=== PATIENT | female | born 1970 | race Caucasian/White ===

== ENCOUNTER 2020-10-27 06:51 | Emergency (ER) | payer OTHER ==
[~2020-10-27] VITALS: Ht 162.6 cm; Wt 111.1 kg
[2020-10-27 08:56] VITALS: BP 184/72
== END 2020-10-27 08:56 | disposition home or self-care (01) ==
LOC: M.ERS 06:51
DX: F32.9 Major depressive disorder, single episode, unspecified (principal); Z59.0 Homelessness; I10 Essential (primary) hypertension; J45.909 Unspecified asthma, uncomplicated; Z88.8 Allergy status to other drugs, medicaments and biological substances

== ENCOUNTER 2020-11-12 14:53 | Emergency (ER) | payer OTHER ==
[~2020-11-12] VITALS: Ht 162.6 cm; Wt 108.9 kg
[2020-11-12 15:40] VITALS: BP 108/58
== END 2020-11-12 15:41 | disposition home or self-care (01) ==
LOC: M.ERS 14:53
DX: E86.0 Dehydration (principal); R42 Dizziness and giddiness; I10 Essential (primary) hypertension; E03.9 Hypothyroidism, unspecified; J45.909 Unspecified asthma, uncomplicated; M79.7 Fibromyalgia; Z88.8 Allergy status to other drugs, medicaments and biological substances

== ENCOUNTER 2020-11-14 14:07 | Inpatient (IN) | payer OTHER ==
[~2020-11-14] VITALS: Ht 152.4 cm; Wt 118.4 kg
[2020-11-14 14:20] VITALS: BP 82/62
[2020-11-14] MEDS ORDERED: ZESTRIL40 MG PO (14:26)
[2020-11-14] MEDS ORDERED: SERTRALINE HCL100 MG PO (14:26)
[2020-11-14] MEDS ORDERED: LYRICA25 MG PO (14:26)
[2020-11-14] MEDS ORDERED: LEVO-T25 MCG PO (14:27)
[2020-11-14 15:04] LABS: ABSOLUTE BASOPHILS 0.1 thou/uL (0.0-0.2); ABSOLUTE EOSINOPHILS 0.1 thou/uL (0.0-0.7); ABSOLUTE LYMPHOCYTES 1.5 thou/uL (0.8-5.3); ABSOLUTE MONOCYTES 0.4 thou/uL (0.0-1.2); ABSOLUTE NEUTROPHILS 5.5 thou/uL (1.6-8.1); BASOPHILS 0.9 %; EOSINOPHILS 1.5 %; HEMATOCRIT 33.8 % (37.0-47.0); HEMOGLOBIN 10.9 gm/dL (12.0-15.0); LYMPHOCYTES 19.8 %; MCH 26.9 pg (26.0-34.0); MCHC 32.1 g/dL (28.0-37.0); MCV 83.7 fL (80.0-100.0); MONOCYTES 5.5 %; MPV 8.3 fl. (7.2-11.1); NUCLEATED RBCS 0 /100WBC; PLATELET COUNT* 218 thou/uL (150-400); POLYS 72.3 %; RBC 4.03 mil/uL (4.20-5.00); WBC 7.6 thou/uL (4.0-11.0)
[2020-11-14 15:12] LABS: CALCIUM 7.9 mg/dL (8.5-10.1); POTASSIUM 3.4 mmol/L (3.5-5.1)
[2020-11-14 15:25] LABS: ALBUMIN 3.3 g/dL (3.4-5.0); TOTAL BILIRUBIN 0.2 mg/dL (<0.1-1.0); TOTAL PROTEIN 6.4 g/dL (6.4-8.2)
--- NOTE | 2020-11-14 15:32 | EKG ---
[place] [address] ELECTROCARDIOGRAM REPORT Name: CHINO CONNER Room: [facility]#: [id number] Admission: 11/14/20 Attend Phys: Discharge: Date of : 68 Date of Service: 11/14/20 1445 Report #: [id number] THIS REPORT FOR: //name// [facility] ED Test Date: 2020-11-14 Test Time: 14:45:52 Pat Name: CHINO CONNER Department: Room: Gender: Genetic Supervisor: : 1970 Requested By: Sohail Wang Order Number: [id number] MD: Kar Martínez Measurements Intervals [place] Rate: 77 P: 39 [place]: 164 QRS: -36 QRSD: 111 T: 33 QT: 392 QTc: 444 Interpretive Statements Sinus rhythm Left ventricular hypertrophy Anterior Q waves, possibly due to LVH No previous ECG available for comparison Electronically Signed On 11-14-2020 15:31:59 CDT by Kar Martínez [email or web address] <ELECTRONICALLY SIGNED> By: Kar Martínez MD, [facility] 11/14/20 1531 1445 1445 Kar Martínez MD, [facility] /EPI
[2020-11-14 16:06] LABS: APTT 25.9 Seconds (25.0-31.3); PROTIME 10.9 Seconds (9.20-11.50)
[2020-11-14 20:30] VITALS: BP 115/61
[2020-11-14 21:35] VITALS: BP 115/61
[2020-11-14 21:55] LABS: URINE BILIRUBIN NEGATIVE (Negative); URINE BLOOD NEGATIVE (Negative); URINE CLARITY CLEAR; URINE COLOR YELLOW; URINE GLUCOSE-RANDOM NEGATIVE (Negative); URINE KETONES NEGATIVE (Negative); URINE LEUKOCYTES-REFLEX NEGATIVE (Negative); URINE NITRITE-REFLEX NEGATIVE (Negative); URINE PROTEIN 1+ (Negative); URINE SPECIFIC GRAVITY >= 1.030 (1.005-1.030); URINE UROBILINOGEN 0.2 E.U./dl (0.2-1.0)
[2020-11-15 00:30] VITALS: BP 107/60
[2020-11-15 03:28] LABS: HEMATOCRIT 35.9 % (37.0-47.0); HEMOGLOBIN 11.3 gm/dL (12.0-15.0); MCH 26.6 pg (26.0-34.0); MCHC 31.5 g/dL (28.0-37.0); MCV 84.5 fL (80.0-100.0); MPV 8.2 fl. (7.2-11.1); RBC 4.25 mil/uL (4.20-5.00); RDW-CV 16.9 % (10.5-14.5); WBC 7.8 thou/uL (4.0-11.0)
[2020-11-15 03:44] LABS: CALCIUM 7.6 mg/dL (8.5-10.1); POTASSIUM 3.7 mmol/L (3.5-5.1)
[2020-11-15 03:45] LABS: CREATININE 3.3 mg/dL (0.6-1.3)
[2020-11-15 04:35] VITALS: BP 98/51
[2020-11-15 08:30] VITALS: BP 109/61
[2020-11-15 12:54] VITALS: BP 113/58
[2020-11-15 16:00] VITALS: BP 136/73
[2020-11-15 21:45] VITALS: BP 99/49
[2020-11-16 01:04] VITALS: BP 119/67
[2020-11-16 05:09] VITALS: BP 139/66
[2020-11-16 05:59] LABS: HEMATOCRIT 28.5 % (37.0-47.0); HEMOGLOBIN 9.4 gm/dL (12.0-15.0); MCH 27.2 pg (26.0-34.0); MCV 82.4 fL (80.0-100.0); MPV 8.3 fl. (7.2-11.1); RBC 3.46 mil/uL (4.20-5.00); RDW-CV 16.5 % (10.5-14.5); WBC 4.2 thou/uL (4.0-11.0)
[2020-11-16 06:15] LABS: CALCIUM 7.8 mg/dL (8.5-10.1); POTASSIUM 3.9 mmol/L (3.5-5.1)
[2020-11-16 06:16] LABS: CREATININE 1.4 mg/dL (0.6-1.3)
[2020-11-16 08:00] VITALS: BP 145/69
[2020-11-16 16:00] VITALS: BP 171/81
[2020-11-16 20:00] VITALS: BP 134/56
[2020-11-17 01:25] VITALS: BP 166/84
[2020-11-17 08:00] VITALS: BP 167/92
[2020-11-17 16:00] VITALS: BP 162/85
[2020-11-17 19:58] VITALS: BP 147/71
[2020-11-18] VITALS: BP 154/73
[2020-11-18 04:51] LABS: HEMATOCRIT 30.2 % (37.0-47.0); MCH 27.3 pg (26.0-34.0); MCV 82.7 fL (80.0-100.0); MPV 8.4 fl. (7.2-11.1); RBC 3.66 mil/uL (4.20-5.00); RDW-CV 16.3 % (10.5-14.5); WBC 4.6 thou/uL (4.0-11.0)
[2020-11-18 05:10] LABS: CREATININE 1.1 mg/dL (0.6-1.3); MAGNESIUM 1.3 mg/dL (1.8-2.4); POTASSIUM 3.7 mmol/L (3.5-5.1); TOTAL BILIRUBIN 0.3 mg/dL (<0.1-1.0); TOTAL PROTEIN 6.1 g/dL (6.4-8.2)
[2020-11-18 08:00] VITALS: BP 182/102
[2020-11-18 12:00] VITALS: BP 127/89
[2020-11-18] MEDS ORDERED: ZOFRAN ODT4 MG DISSOLVE (12:20)
[2020-11-18] MEDS ORDERED: HYDROCODON-ACE1 EAC7 PO (12:20)
[2020-11-18] MEDS ORDERED: PHENERGAN 25 MG25 M1 PO (12:20)
[2020-11-18 13:12] VITALS: BP 182/102
== END 2020-11-18 18:45 | disposition home or self-care (01) | DRG 683 ==
LOC: M.ERS 14:07 → M.TBA-ER 16:27 → M.2W 11-15 13:05
PROVIDERS: Emergency Medicine; Family Medicine; Internal Medicine; ADMIT Internal Medicine; ATTEND Internal Medicine
DX: N17.9 Acute kidney failure, unspecified (principal); Z68.43 Body mass index [BMI] 50.0-59.9, adult; J45.909 Unspecified asthma, uncomplicated; E86.0 Dehydration; Z88.8 Allergy status to other drugs, medicaments and biological substances; I10 Essential (primary) hypertension; E87.6 Hypokalemia; M79.7 Fibromyalgia; E66.9 Obesity, unspecified; E03.9 Hypothyroidism, unspecified; G89.29 Other chronic pain; Z59.0 Homelessness; K59.00 Constipation, unspecified; Z20.822 Contact with and (suspected) exposure to COVID-19

== ENCOUNTER 2021-01-04 09:30 | Emergency (ER) | payer OTHER ==
[~2021-01-04] VITALS: Ht 162.6 cm; Wt 113.4 kg
[~2021-01-04 09:30] MED LIST: HYDROCODON-ACE1 EAC7 PO; LEVO-T25 MCG PO; LYRICA25 MG PO; PHENERGAN 25 MG25 M1 PO; SERTRALINE HCL100 MG PO; ZESTRIL40 MG PO; ZOFRAN ODT4 MG DISSOLVE
[2021-01-04 11:53] LABS: ABSOLUTE EOSINOPHILS 0.1 thou/uL (0.0-0.7); ABSOLUTE LYMPHOCYTES 0.8 thou/uL (0.8-5.3); ABSOLUTE MONOCYTES 0.2 thou/uL (0.0-1.2); ABSOLUTE NEUTROPHILS 3.5 thou/uL (1.6-8.1); BASOPHILS 0.8 %; EOSINOPHILS 1.1 %; HEMOGLOBIN 11.3 gm/dL (12.0-15.0); LYMPHOCYTES 17.3 %; MCH 27.1 pg (26.0-34.0); MCHC 32.3 g/dL (28.0-37.0); MCV 83.9 fL (80.0-100.0); MONOCYTES 4.2 %; MPV 7.5 fl. (7.2-11.1); NUCLEATED RBCS 0 /100WBC; PLATELET COUNT* 215 thou/uL (150-400); POLYS 76.6 %; RBC 4.18 mil/uL (4.20-5.00); RDW-CV 16.6 % (10.5-14.5); WBC 4.6 thou/uL (4.0-11.0)
[2021-01-04 12:01] LABS: CALCIUM 8.8 mg/dL (8.5-10.1); CREATININE 1.4 mg/dL (0.6-1.3); POTASSIUM 4.2 mmol/L (3.5-5.1)
[2021-01-04 12:06] LABS: ALBUMIN 3.7 g/dL (3.4-5.0); TOTAL BILIRUBIN 0.4 mg/dL (<0.1-1.0); TOTAL PROTEIN 7.3 g/dL (6.4-8.2)
[2021-01-04] MEDS ORDERED: HYDROCODON-ACE1 EAC7 PO ×2 (14:18)
[2021-01-04] MEDS ORDERED: ZOFRAN ODT4 MG DISSOLVE ×2 (14:18)
[2021-01-04 14:32] VITALS: BP 122/70
--- NOTE | 2021-01-04 17:05 | EKG ---
[place] [address] ELECTROCARDIOGRAM REPORT Name: CHINO CONNER Room: [facility]#: [id number] Admission: 01/04/21 Attend Phys: Discharge: 01/04/21 Date of : 68 Date of Service: 01/04/21 1123 Report #: [id number] THIS REPORT FOR: //name// [facility] ED Test Date: 2021-01-04 Test Time: 11:23:11 Pat Name: CHION CONNER Department: Room: Gender: F Printed Circuit Board Preassembler: CLARA : 1970 Requested By: Stevan Dyson Order Number: [id number] MD: Abner Glaser Measurements Intervals [place] Rate: 70 P: 47 ID: 180 QRS: -35 QRSD: 106 T: 10 QT: 379 QTc: 409 Interpretive Statements Sinus rhythm Left ventricular hypertrophy late transition Compared to ECG 11/14/2020 14:45:52 No significant changes Electronically Signed On 01-04-2021 17:04:57 CDT by Abner Glaser [email or web address] <ELECTRONICALLY SIGNED> By: Abner Glaser MD, FACC 01/04/21 1704 1123 1123 Abner Glaser MD, FAC /EPI
[2021-01-05] MEDS ORDERED: ARMOUR THYROID15 M1 PO ×2 (08:51)
== END 2021-01-04 14:34 | disposition home or self-care (01) ==
LOC: M.ERS 09:30
PROVIDERS: Emergency Medicine Emergency Medical Services
DX: R10.13 Epigastric pain (principal); J45.909 Unspecified asthma, uncomplicated; I10 Essential (primary) hypertension; E03.9 Hypothyroidism, unspecified; Z79.899 Other long term (current) drug therapy; Z88.8 Allergy status to other drugs, medicaments and biological substances

== ENCOUNTER 2021-01-05 08:38 | Inpatient (IN) | payer OTHER ==
[~2021-01-05] VITALS: Ht 162.6 cm; Wt 108.9 kg
--- NOTE | ~2021-01-05 | PROC ---
[address] [address] PROCEDURE REPORT Name: CHINO CONNER Room: [address] IN M.R.#: [id number] Admission: 01/05/21 Attend Phys: Sayda Bond Discharge: 01/08/21 Date of : 68 Report #: [id number] THIS REPORT FOR: cc: Lisa Martinez Sarah Anne FNP [facility],Medical Records Staff ~ For GI report, please see the Provation report in Perceptive 7 content. By: 0645Medical Records Staff [facility] /JUSTIN
--- NOTE | ~2021-01-05 | CON ---
[address] [address] CONSULTATION Name: CHINO CONNER Room: [address] Rodrick Martinez#: [id number] Admission: 01/05/21 Attend Phys: Sayda Bond Discharge: Date of : 68 Report #: [id number] THIS REPORT FOR: cc: Lisa Martinez Sarah Anne FNP Namin, Farid M. MD ~ cc: LISA MARTINEZ NP DATE OF CONSULTATION: 01/07/2021 Please note at the time of this dictation, the patient was seen and physically examined by myself. REASON FOR CONSULTATION: Abdominal pain, nausea, vomiting and diarrhea. HISTORY OF PRESENT ILLNESS: This is a 50-year-old female presenting to the Emergency Room with abdominal pain, nausea, vomiting and diarrhea that started on Thursday, progressively got worse on Thursday, prompting her to come in. She was seen earlier in the Emergency Room and sent home, but her symptoms continued to get worse, prompting her to come back since she was unable to keep anything down and she became very dehydrated. The patient reports that she was having epigastric pain that radiated into her back. She states she had significant nausea and vomiting with no bright red blood or coffee-ground emesis. She states her diarrhea was about 3-4 times a day and she denied any bright red blood or melanotic stool. She states her normal bowel habits is a soft formed stool on a daily basis. The patient states since she has been here, her nausea and vomiting have improved. Her last diarrhea stool was yesterday. The only thing that has not improved is her abdominal pain, which persists in the epigastric to right upper quadrant area. The patient does take naproxen regularly for her fibromyalgia and has for some time. The patient states she did have a colonoscopy several years ago as a preventative measure back in [place], [place] with Dr. Vanessa Davies. We will try to attempt to get those records. She states that they did biopsies and everything came back okay. Unclear if it was polyps or anything else. ALLERGIES: AMBIEN. MEDICATIONS FROM HOME: Include lisinopril, Lyrica, sertraline and [place] Thyroid. PAST MEDICAL HISTORY: Hypothyroidism, hypertension, some depression, fibromyalgia. She has asthma. She has 3 herniated disks. PAST SURGICAL HISTORY: [place] [address] CONSULTATION Name: CHINO CONNER [address] [id number] Admission: 01/05/21 Attend Phys: Sayda Bond Discharge: Date of : 68 Report #: [id number] FAMILY HISTORY: Father with colon polyps and mother with breast cancer. SOCIAL HISTORY: Apparently homeless. Denies any alcohol use, but has smoked cigarettes for a long time for almost 30 years, but none currently. REVIEW OF SYSTEMS: Twelve-point review of systems is essentially negative except what is mentioned in the HPI. PHYSICAL EXAMINATION: VITAL SIGNS: Temperature 36.6, pulse 63, respirations 20, blood pressure 128/70. HEART: Regular rate and rhythm. LUNGS: Clear. ABDOMEN: Soft, positive bowel sounds in all 4 quadrants with tenderness noted in epigastric and right upper quadrant area. LABORATORY DATA: Hemoglobin is 12.1, white count is 6.1, platelets 295. ESR is 13. Iron is 45, TIBC is 296. Vitamin B12 is 435. CRP is 2.8. Percentage sat iron is 15. GFR is 32 and her LFTs are completely normal. She had a CT scan of the abdomen and pelvis which was completely negative GI. IMPRESSION: 1. Abdominal pain, epigastric to right upper quadrant, pain radiating into her back. 2. Nausea and vomiting has improved. 3. Diarrhea, improved. 4. Anemia, mild. 5. Chronic nonsteroidal antiinflammatory drug use, naproxen. 6. Family history, mother with breast cancer and father with colon polyps. PLAN: 1. EGD today with Dr. Yu. 2. Obtain records from [place], [place] from Dr. Vanessa Davies on her colonoscopy. 3. Further recommendations to be made after the procedure has been performed. Thank you for allowing us to participate in this patient's care. Please do not hesitate to call with any questions regarding this consult. By: [id number] Yu MD /carrie
[2021-01-05 08:48] VITALS: BP 164/89
[2021-01-05] MEDS ORDERED: ARMOUR THYROID15 M1 PO ×2 (08:51)
[2021-01-05 09:07] LABS: ABSOLUTE BASOPHILS 0.1 thou/uL (0.0-0.2); ABSOLUTE EOSINOPHILS 0.1 thou/uL (0.0-0.7); ABSOLUTE LYMPHOCYTES 0.7 thou/uL (0.8-5.3); ABSOLUTE MONOCYTES 0.3 thou/uL (0.0-1.2); ABSOLUTE NEUTROPHILS 4.9 thou/uL (1.6-8.1); BASOPHILS 1.7 %; EOSINOPHILS 1.6 %; HEMATOCRIT 36.6 % (37.0-47.0); HEMOGLOBIN 12.1 gm/dL (12.0-15.0); LYMPHOCYTES 10.8 %; MCH 27.2 pg (26.0-34.0); MCHC 32.9 g/dL (28.0-37.0); MCV 82.7 fL (80.0-100.0); MONOCYTES 4.8 %; MPV 7.5 fl. (7.2-11.1); NUCLEATED RBCS 0 /100WBC; POLYS 81.1 %; RBC 4.43 mil/uL (4.20-5.00); RDW-CV 16.8 % (10.5-14.5); WBC 6.1 thou/uL (4.0-11.0)
[2021-01-05 09:19] LABS: CALCIUM 9.1 mg/dL (8.5-10.1); CREATININE 1.7 mg/dL (0.6-1.3); POTASSIUM 4.3 mmol/L (3.5-5.1)
[2021-01-05 09:23] LABS: TOTAL BILIRUBIN 0.4 mg/dL (<0.1-1.0); TOTAL PROTEIN 7.9 g/dL (6.4-8.2)
[2021-01-05 09:32] LABS: PLATELET COUNT* 295 thou/uL (150-400)
--- NOTE | 2021-01-05 10:24 | EKG ---
[place] [address] ELECTROCARDIOGRAM REPORT Name: CHINO CONNER Room: [facility] M.R.#: [id number] Admission: 01/05/21 Attend Phys: Luis Nieto Discharge: Date of : 68 Date of Service: 01/05/21 0913 Report #: [id number] THIS REPORT FOR: //name// [facility] ED Test Date: 2021-01-05 Test Time: 09:13:30 Pat Name: CHINO CONNER Department: Room: [facility] Gender: F Utilization Review Rn: DEON : 1970 Requested By: Stevan Dyson Order Number: [id number] MD: Abner Glaser Measurements Intervals [place] Rate: 69 P: 25 [place]: 180 QRS: -32 QRSD: 106 T: 21 QT: 388 QTc: 416 Interpretive Statements Sinus rhythm Abnormal R-wave progression, late transition Left ventricular hypertrophy Compared to ECG 01/04/2021 11:23:11 No significant changes Electronically Signed On 01-05-2021 10:24:12 CDT by Abner Glaser [email or web address] <ELECTRONICALLY SIGNED> By: Abner Glaser MD, FAC 01/05/21 1024 2 2 Abner Glaser MD, [facility] /EPI
[2021-01-05 11:35] VITALS: BP 151/88
[2021-01-05 14:09] VITALS: BP 119/69
[2021-01-05 16:21] VITALS: BP 132/69
[2021-01-05 20:00] VITALS: BP 133/70
[2021-01-06 04:40] LABS: HEMATOCRIT 31.9 % (37.0-47.0); HEMOGLOBIN 10.4 gm/dL (12.0-15.0); MCH 27.4 pg (26.0-34.0); MCHC 32.7 g/dL (28.0-37.0); MCV 83.9 fL (80.0-100.0); MPV 7.6 fl. (7.2-11.1); RBC 3.81 mil/uL (4.20-5.00); RDW-CV 16.8 % (10.5-14.5); WBC 3.9 thou/uL (4.0-11.0)
[2021-01-06 05:12] LABS: CALCIUM 8.5 mg/dL (8.5-10.1); CREATININE 1.4 mg/dL (0.6-1.3); POTASSIUM 4.1 mmol/L (3.5-5.1)
--- NOTE | 2021-01-06 07:20 | NUR ---
Alert and oriented x 4. She did have some nausea, med given x 1. She is up independetly to the bathroom. pain meds x 2 for abdominal pain. Shehas slept well.
[2021-01-06 07:50] VITALS: BP 127/61
[2021-01-06 15:50] VITALS: BP 140/71
--- NOTE | 2021-01-06 16:12 | NUR ---
NO COMPLAINTS OF NAUSEA OR DIARRHEA THIS SHIFT, PRN VICODIN GIVEN X 1 FOR ABD PAIN. PATIENT UP AMBULATING WITHOUT DIFFICULTY, TOOK SHOWER. IVF INFUSING ORDERED. SPOKE WITH DR. NG THIS AM, NPO AFTER MIDINGHT FOR EGD. PATIENT UPDATED ON PLAN OF CARE. REMAINS ON CLEAR LIQUIDS.
[2021-01-06 18:21] LABS: % SATURATION 15 % (20-39); IRON 45 ug/dL (50-175)
[2021-01-06 20:00] VITALS: BP 138/70
--- NOTE | 2021-01-07 08:00 | NUR ---
Alert and oriented x 4. She is up independently in the room. She had painmed x 1 at bedtime. This am her IV stopped working. We were unable to start a new one. Work Order Sorting Clerk was notified and he will come try. She has been NPO since midnight for an EGD with Dr Yu at 1pm. Onofres slept well.
[2021-01-07 08:08] VITALS: BP 144/77
--- NOTE | 2021-01-07 12:06 | NUR ---
AM ASSESSMENT AND VITAL SIGNS COMPLETED DOCUMENTED. PT CONTINUED TO HAVE NAUSEA AND VOMITING HOWEVER GI WANTS HER TO FOLLOW UP OUT PATIENT SHE HAS A LONGSTANDING HX WITH THEM. PT HAS BEEN REHYDRATED WITH IVF AND IS TOLERATING ICE CHIPS. PT PROVIDED WITH DISCHARGE INSTRUCTIONS, TRANSPORTED TO EXIT AND DISCHARGED HOME IN STABLE CONDITION.
--- NOTE | 2021-01-07 15:26 | NUR ---
cm completed an assessement with patient who indicated she lives home alone. pt has house. pt has no stairs to navigate. pt no longer using cane at this time. pt drives a vehicle. pt denies hx with hh or snf. there are no anticipated dc needs at this time.
[2021-01-07 16:00] VITALS: BP 142/73
--- NOTE | 2021-01-07 16:57 | 2DMMODE ---
[place] [address] 2 D/M-MODE ECHOCARDIOGRAM Name: CHINO CONNER Room: [address] ADM IN .R.#: [id number] Admission: 01/05/21 Attend Phys: Luis Nieto Discharge: Date of : 68 Date of Service: 01/07/21 1657 Report #: [id number] THIS REPORT FOR: cc: Lisa Martinez Sarah Anne FNP Liston, Michael J. MD [facility] ~ APPROVED REPORT Study performed: 01/07/2021 11:14:32 EXAM: Comprehensive 2D, Doppler, and color-flow Echocardiogram Patient Location: In-Patient Room #: 311 Status: routine BSA: 2.11 HR: 67 bpm BP: 144/77 mmHg Rhythm: NSR Other Information Study Quality: Good Indications Dyspnea 2D Dimensions IVSd: 10.54 (7-11mm) LVOT Diam: 19.89 (18-24mm) LVDd: 51.56 mm PWd: 11.63 (7-11mm) Ascending Ao: 32.11 (22-36mm) LVDs: 29.11 (25-40mm) Aortic Root: 28.65 mm Volumes Left Atrial Volume (Systole) LA ESV Index: 23.90 mL/m2 Aortic Valve AoV Peak Jose Alfredo.: 1.72 m/s AO Peak Gr.: 11.80 mmHg LVOT Max P.49 mmHg AO Mean Gr.: 6.80 mmHg LVOT Mean P.59 mmHg LVOT Max V: 1.62 m/s AO V2 VTI: 37.36 cm LVOT Mean V: 0.96 m/s MARYANNE (VTI): 3.39 cm2 LVOT V1 VTI: 40.71 cm AI [place]: 1.05 m/s2 [place] [address] 2 D/M-MODE ECHOCARDIOGRAM Name: UBALDOCHINO Room: [address] IN .R.#: [id number] Admission: 01/05/21 Attend Phys: Luis Nieto Discharge: Date of : 68 Date of Service: 01/07/21 1657 Report #: [id number] AI PHT: 836.62 ms Mitral Valve E/A Ratio: 1.13 MV Decel. Time: 246.56 ms MV E Max Jose Alfredo.: 0.99 m/s MV PHT: 71.50 ms MVA (PHT): 3.08 cm2 TDI E/Lateral E': 9.00 E/Medial E': 12.38 Medial E' Jose Alfredo.: 0.08 m/s Lateral E' Jose Alfredo.: 0.11 m/s Pulmonary Valve PV Peak Jose Alfredo.: 1.29 m/s PV Peak Gr.: 6.68 mmHg Left Ventricle The left ventricle is normal size. There is normal LV segmental wall motion. There is normal left ventricular wall thickness. Left ventricular systolic function is normal. LVEF is 60-65%. Transmitral Doppler flow pattern suggests impaired LV relaxation. Right Ventricle The right ventricle is normal size. The right ventricular systolic function is normal. Atria The left atrium size is normal. Right atrium is mildly dilated. Aortic Valve The aortic valve is normal in structure. Mild aortic regurgitation. There is no aortic valvular stenosis. Mitral Valve The mitral valve is normal in structure. There is no mitral valve regurgitation noted. No evidence of mitral valve stenosis. Tricuspid Valve The tricuspid valve is normal in structure. Trace tricuspid regurgitation. Pulmonic Valve The pulmonary valve is normal in structure. There is no pulmonic [place] [address] 2 D/M-MODE ECHOCARDIOGRAM Name: CHINO CONNER Room: [address] [facility]#: [id number] Admission: 01/05/21 Attend Phys: Luis Nieto Discharge: Date of : 68 Date of Service: 01/07/21 1657 Report #: [id number] Great Vessels The aortic root is normal in size. IVC is normal in size and collapses >50% with inspiration. Pericardium There is no pericardial effusion. <Conclusion> The left ventricle is normal size. There is normal left ventricular wall thickness. Left ventricular systolic function is normal. LVEF is 60-65%. Transmitral Doppler flow pattern suggests impaired LV relaxation. There is normal LV segmental wall motion. Mild aortic regurgitation. Trace tricuspid regurgitation. IVC is normal in size and collapses >50% with inspiration. <ELECTRONICALLY SIGNED> By: Marques Hernandez MD, FACC 01/07/211656 56 56 Marques Hernandez MD, FACC /INF
--- NOTE | 2021-01-07 17:55 | NUR ---
AM ASSESSMENT AND VITAL SIGNS COMPLETED DOCUMENTED. PT HAD AN EGD DONE THIS AFTERNOON REVEALING A HIATAL HERNIA AND 3 BIOPSIES WERE SENT TO PATHOLOGY. PT RETURNED TO FLOOR IN STABLE CONDITION.
[2021-01-07 19:45] VITALS: BP 110/71
--- NOTE | 2021-01-07 19:45 | NUR ---
RESTING QUIETLY IN BED AND WATCHING TV. CALL LIGHT WITHIN REACH.
--- NOTE | 2021-01-08 05:28 | NUR ---
RESTED QUIETLY. NO COMPLAINTS VOICED. HOURLY ROUNDING IN PROGRESS.
[2021-01-08 07:34] VITALS: BP 108/54
[2021-01-08] MEDS ORDERED: PROTONIX40 M4 PO ×2 (08:21)
[2021-01-08 13:02] VITALS: BP 108/54
--- NOTE | 2021-01-08 13:09 | NUR ---
Case and plan of care reviewed with physician each weekday during patient's length of stay. Continue plan of care per physician orders. Plan is for discharge Home today. EGD yesterday consistent with gastritis, possible Miles's; biopsies pending Protonix 40mg BID x 3 months Follow up with GI in 4-6 weeks No discharge needs identified
[2021-01-08 14:55] VITALS: BP 108/54
--- NOTE | 2021-01-08 14:56 | NUR ---
PT DISCHARGED HOME. COPY OF DISCHARGE PAPERWORK TO PT WITH EXPLAINATION. PT VERBALIZED UNDERSTANDING. PT TAKEN BY WHEELCHAIR TO PRIVATE VEHICHLE. TOOK ALL BELONGINGS.
--- NOTE | 2021-01-09 14:07 | PATH ---
[address] [address] PATHOLOGY RPT PROCEDURE Name: CHINO CONNER Room: [address] IN M.R.#: [id number] Admission: 01/05/21 Date of : 68 Discharge: 01/08/21 Report #: [id number] Path Case #: [id number] [facility] Accession Number: [id number] . 01 Material submitted: . PART A: duodenum - DUODENAL BIOPSY TO R/O CELIAC SPRUE PART B: gastrointestinal site - GASTRIC BIOPSY TO R/O H. PYLORI PART C: esophagus - DISTAL ESOPHAGUS TO R/O BURNETT'S. Modifiers: distal . 01 Clinical history: . EGD IN OR ABD PAIN . 02 Diagnosis: A. Duodenal biopsy: - Mild non-specific active duodenitis without significant villous atrophy or intraepithelial lymphocytosis and negative for granulomas, viral inclusions and dysplasia. See comment. . B. Gastric biopsy: - Mild non-specific chronic gastritis, negative for Helicobacter pylori organisms, granulomas and dysplasia. . C. Distal esophagus: - Benign esophageal and gastric/columnar mucosa with moderate chronic inflammation typical of reflux, negative for goblet cells/diagnostic Burnett's metaplasia, granulomas and dysplasia. (HAYDEE/db; 01/09/2021) . Special stain on B: H. pylori immuno LBQ 01/09/2021 1401 Local . 02 Comment: In specimen A (duodenal biopsy), because there is no significant villous atrophy or intraepithelial lymphocytosis, celiac sprue is thought to be unlikely. . 02 Electronically signed: . Boom Dupree MD, Pathologist NPI- [id number] . 01 Gross description: . A. The specimen is received in formalin, labeled "Chino Conner duodenal BX". Received is a segment of pale bruce tissue measuring 0.5 cm in maximum dimensions. The specimen is submitted entirely in cassette A1. . B. The specimen is received in formalin, labeled "Chino Conner gastric BX". Received are 3 segments of pale bru[place] [address] PATHOLOGY RPT PROCEDURE Name: CHINO CONNER Room: [address] DIS IN M.R.#: [id number] Admission: 01/05/21 Date of : 68 Discharge: 01/08/21 Report #: [id number] Path Case #: [id number] from 0.3 to 0.6 cm in maximum dimensions. The specimen is submitted entirely in cassette B1. . C. The specimen is received in formalin, labeled "Ev, Chino, distal esophagus". Received are 2 segments of pale bruce tissue ranging in size from 0.2 cm to 0.5 cm in maximum dimensions. The specimen is submitted entirely in cassette C1.([facility]; 01/08/2021) [facility] 01/08/2021 1316 Local . 02 Pathologist provided ICD-10: K29.80, K29.50, K20.90 . 02 CPT . 143900, 470131, 066602, K74719 Specimen Comment: A courtesy copy of this report has been sent to [phone] Specimen Comment: [phone], Specimen Comment: Report sent to , DR LAZARO / DR GARCÍA Performed at: 01 [facility] [address], [place] [id number] MD Cody Alvarez MD Phone: [phone] Performed at: 02 [facility] [address], [place], [place] [id number] MD Boom Dupree MD Phone: [phone]
== END 2021-01-08 14:59 | disposition home or self-care (01) | DRG 380 ==
LOC: M.ERS 08:38 → M.3W 10:15 → M.TBA-ER 10:15 → M.3W 11:45
PROVIDERS: Emergency Medicine Emergency Medical Services; ADMIT Internal Medicine; ATTEND Internal Medicine
PROC: 0DB68ZX Excision of Stomach, Via Natural or Artificial Opening Endoscopic, Diagnostic (ICD-10-PCS; principal; 2021-01-07)
DX: K22.70 Barrett's esophagus without dysplasia (principal); N17.0 Acute kidney failure with tubular necrosis; Z68.41 Body mass index [BMI] 40.0-44.9, adult; K29.70 Gastritis, unspecified, without bleeding; E66.01 Morbid (severe) obesity due to excess calories; D64.9 Anemia, unspecified; Z88.8 Allergy status to other drugs, medicaments and biological substances; Z79.899 Other long term (current) drug therapy; F32.A Depression, unspecified; K52.9 Noninfective gastroenteritis and colitis, unspecified; Z20.822 Contact with and (suspected) exposure to COVID-19

== ENCOUNTER 2021-01-31 17:28 | Emergency (ER) | payer OTHER ==
[~2021-01-31] VITALS: Ht 162.6 cm; Wt 108.9 kg
[~2021-01-31 17:28] MED LIST changes: +ARMOUR THYROID30 M1 PO; +LISINOPRIL20 MG PO; +LYRICA 75 MG CA75 MG PO; -LYRICA25 MG PO; +PROTONIX40 M4 PO; -ZESTRIL40 MG PO
[2021-01-31 18:00] LABS: URINE BILIRUBIN NEGATIVE (Negative); URINE BLOOD NEGATIVE (Negative); URINE CLARITY CLEAR; URINE COLOR YELLOW; URINE GLUCOSE-RANDOM NEGATIVE (Negative); URINE KETONES TRACE (Negative); URINE LEUKOCYTES NEGATIVE (Negative); URINE NITRITE NEGATIVE (Negative); URINE PROTEIN NEGATIVE (Negative); URINE SPECIFIC GRAVITY >= 1.030 (1.005-1.030); URINE UROBILINOGEN 0.2 E.U./dl (0.2-1.0)
[2021-01-31 19:32] LABS: ABSOLUTE BASOPHILS 0.1 thou/uL (0.0-0.2); ABSOLUTE EOSINOPHILS 0.1 thou/uL (0.0-0.7); ABSOLUTE LYMPHOCYTES 1.2 thou/uL (0.8-5.3); ABSOLUTE MONOCYTES 0.2 thou/uL (0.0-1.2); ABSOLUTE NEUTROPHILS 4.2 thou/uL (1.6-8.1); EOSINOPHILS 1.1 %; HEMATOCRIT 31.1 % (37.0-47.0); HEMOGLOBIN 10.3 gm/dL (12.0-15.0); LYMPHOCYTES 20.6 %; MCH 27.5 pg (26.0-34.0); MCV 83.5 fL (80.0-100.0); MONOCYTES 3.9 %; MPV 7.8 fl. (7.2-11.1); NUCLEATED RBCS 0 /100WBC; PLATELET COUNT* 190 thou/uL (150-400); POLYS 73.4 %; RBC 3.73 mil/uL (4.20-5.00); RDW-CV 16.7 % (10.5-14.5); WBC 5.7 thou/uL (4.0-11.0)
[2021-01-31 19:40] LABS: CREATININE 1.4 mg/dL (0.6-1.3); POTASSIUM 4.8 mmol/L (3.5-5.1)
[2021-01-31 19:44] LABS: ALBUMIN 3.4 g/dL (3.4-5.0); TOTAL BILIRUBIN 0.4 mg/dL (<0.1-1.0)
[2021-01-31 22:30] VITALS: BP 145/93
--- NOTE | 2021-02-01 11:18 | EKG ---
[place] [address] ELECTROCARDIOGRAM REPORT Name: CHINO CONNER Room: [facility]#: [id number] Admission: 01/31/21 Attend Phys: Discharge: 01/31/21 Date of : 68 Date of Service: 01/31/211916 Report #: [id number] THIS REPORT FOR: //name// [facility] ED Test Date: 2021-01-31 Test Time: 19:17:45 Pat Name: CHINO CONNER Department: Room: Gender: F Craft Coordinator: : 1970 Requested By: Bhupendra Butcher Order Number: [id number] MD: Abner Glaser Measurements Intervals [place] Rate: 78 P: 56 [place]: 181 QRS: -31 QRSD: 115 T: 21 QT: 389 QTc: 444 Interpretive Statements Sinus rhythm Nonspecific intraventricular conduction delay Lateral infarct, age indeterminate Compared to ECG 01/05/2021 09:13:30 Left ventricular hypertrophy no longer present Electronically Signed On 02-01-2021 11:18:40 RN RADIATION by Abner Glaser [email or web address] <ELECTRONICALLY SIGNED> By: Abner Glaser MD, FAC 02/01/21 1118 16 16 Abner Glaser MD, [facility] /EPI
== END 2021-01-31 22:31 | disposition home or self-care (01) ==
LOC: M.ERS 17:28
PROVIDERS: Physician Assistant
DX: R10.12 Left upper quadrant pain (principal); R10.13 Epigastric pain; J45.909 Unspecified asthma, uncomplicated; I10 Essential (primary) hypertension; E03.9 Hypothyroidism, unspecified; Z79.899 Other long term (current) drug therapy; Z88.8 Allergy status to other drugs, medicaments and biological substances

== ENCOUNTER 2021-02-01 07:18 | Inpatient (IN) | payer OTHER ==
[~2021-02-01] VITALS: Ht 162.6 cm; Wt 112.4 kg
[2021-02-01 07:20] VITALS: BP 123/80
[2021-02-01 07:39] LABS: ABSOLUTE BASOPHILS 0.1 thou/uL (0.0-0.2); ABSOLUTE EOSINOPHILS 0.1 thou/uL (0.0-0.7); ABSOLUTE LYMPHOCYTES 0.7 thou/uL (0.8-5.3); ABSOLUTE MONOCYTES 0.2 thou/uL (0.0-1.2); ABSOLUTE NEUTROPHILS 3.3 thou/uL (1.6-8.1); BASOPHILS 1.2 %; EOSINOPHILS 1.3 %; HEMATOCRIT 34.4 % (37.0-47.0); HEMOGLOBIN 11.1 gm/dL (12.0-15.0); LYMPHOCYTES 15.3 %; MCH 27.1 pg (26.0-34.0); MCHC 32.2 g/dL (28.0-37.0); MCV 84.1 fL (80.0-100.0); MONOCYTES 5.1 %; MPV 7.5 fl. (7.2-11.1); NUCLEATED RBCS 0 /100WBC; PLATELET COUNT* 190 thou/uL (150-400); POLYS 77.1 %; RDW-CV 17.5 % (10.5-14.5); WBC 4.3 thou/uL (4.0-11.0)
[2021-02-01 07:46] LABS: CREATININE 1.3 mg/dL (0.6-1.3); POTASSIUM 3.9 mmol/L (3.5-5.1)
[2021-02-01 07:50] LABS: ALBUMIN 3.6 g/dL (3.4-5.0); TOTAL BILIRUBIN 0.5 mg/dL (<0.1-1.0); TOTAL PROTEIN 7.3 g/dL (6.4-8.2)
[2021-02-01 08:08] LABS: ACETAMINOPHEN 14 ug/mL (10-30); ALCOHOL < 10 mg/dL (<10); SALICYLATE < 2.8 mg/dL (2.8-20.0)
[2021-02-01 08:37] LABS: URINE BILIRUBIN NEGATIVE (Negative); URINE BLOOD TRACE (Negative); URINE CLARITY CLEAR; URINE COLOR YELLOW; URINE GLUCOSE-RANDOM NEGATIVE (Negative); URINE KETONES TRACE (Negative); URINE LEUKOCYTES-REFLEX NEGATIVE (Negative); URINE NITRITE-REFLEX NEGATIVE (Negative); URINE PROTEIN NEGATIVE (Negative); URINE UROBILINOGEN 0.2 E.U./dl (0.2-1.0)
[2021-02-01 08:44] LABS: AMP/METHAMP Negative (Negative); BARBITURATES Negative (Negative); BENZODIAZEPINES Negative (Negative); COCAINE Negative (Negative); METHADONE Negative (Negative); OPIATES POSITIVE (Negative); PCP Negative (Negative); THC Negative (Negative)
--- NOTE | 2021-02-01 11:24 | EKG ---
[place] [address] ELECTROCARDIOGRAM REPORT Name: CHINO CONNER Room: [place] [address] ADM IN [facility].#: [id number] Admission: 02/01/21 Attend Phys: Sung Boyer Discharge: Date of : 68 Date of Service: 02/01/21 0757 Report #: [id number] THIS REPORT FOR: //name// [facility] ED Test Date: 2021-02-01 Test Time: 07:57:26 Pat Name: CHINO CONNER Department: Room: [facility] Gender: F Retail Asset Protection Specialist: ABBY : 1970 Requested By: Stevan Dyson Order Number: [id number] MD: Abner Glaser Measurements Intervals [place] Rate: 74 P: 41 [place]: 150 QRS: -33 QRSD: 109 T: 25 QT: 399 QTc: 443 Interpretive Statements Sinus rhythm Abnormal R-wave progression, late transition Left ventricular hypertrophy Baseline wander in lead(s) I,III,aVR,aVL,aVF,V1,V2,V3,V4,V5,V6 Compared to ECG 01/31/2021 19:17:45 no change Electronically Signed On 02-01-2021 11:24:38 BALE COVERER by Abner Glaser [email or web address] <ELECTRONICALLY SIGNED> By: Abner Glaser MD, [facility] 02/01/21 1124 0757 0757 Abner Glaser MD, [facility] /EPI
[2021-02-02] VITALS (22 sets, daily range): BP systolic 104–130; BP diastolic 47–81
[2021-02-02 03:40] LABS: HEMATOCRIT 34.2 % (37.0-47.0); HEMOGLOBIN 10.7 gm/dL (12.0-15.0); MCH 27.8 pg (26.0-34.0); MCHC 31.3 g/dL (28.0-37.0); MCV 88.7 fL (80.0-100.0); MPV 7.6 fl. (7.2-11.1); RBC 3.85 mil/uL (4.20-5.00); RDW-CV 17.8 % (10.5-14.5); WBC 4.4 thou/uL (4.0-11.0)
[2021-02-02 04:02] LABS: CALCIUM 8.3 mg/dL (8.5-10.1); POTASSIUM 4.3 mmol/L (3.5-5.1)
--- NOTE | 2021-02-02 18:13 | NUR ---
PER DR. STILL, PATIENT READY FOR INPATIENT PSYCH PLACEMENT. ATTEMPTED TO INITIATE TRANSFER WITH THE FOLLOW FACILITIES: [facility]-NO BEDS [facility]-NO BEDS [facility]-FAXED PACKET [facility] BEDS, POSSIBLE DISCHARGES [facility]-FAX[facility] PACKET [facility]EDS [facility]-NO BEDS [place]-FAXED PACKET [facility]XED PACKET [facility]-LEFT
--- NOTE | 2021-02-02 18:40 | NUR ---
pt evaluated via telepsych, and placement is reccommended and currently is in the process.
[2021-02-03 16:35] VITALS: BP 170/84
[2021-02-04 03:43] LABS: HEMATOCRIT 32.6 % (37.0-47.0); HEMOGLOBIN 10.7 gm/dL (12.0-15.0); MCH 27.6 pg (26.0-34.0); MCHC 32.8 g/dL (28.0-37.0); MCV 84.3 fL (80.0-100.0); MPV 7.5 fl. (7.2-11.1); RBC 3.87 mil/uL (4.20-5.00); RDW-CV 17.4 % (10.5-14.5); WBC 4.1 thou/uL (4.0-11.0)
[2021-02-04 03:59] LABS: CALCIUM 8.8 mg/dL (8.5-10.1); POTASSIUM 3.6 mmol/L (3.5-5.1)
--- NOTE | 2021-02-04 12:39 | NUR ---
Nutrition: Pt admitted to ICU with SI, overdose. H/o HTN, OBE, asthma. Wt is at usual 247#. Assessed for high BMI. Pt will be transferring to inpatient psych. Regular diet ordered. Albumin 3.6. Not appropriate for diet education at this time. Low nutrition risk. RD available via consult for needs.
--- NOTE | 2021-02-04 13:37 | NUR ---
Met with patient at bedside and introduced role of CM. Luister at bedside. Prior to admission patient was living in her car and was homeless. Patient recently attempted to take life due to the above circumstances. Patient stated that she does not have any support systems and does not have an emergency contact to put on file. Patient was independent with adls, was not working but was driving. Med Assist to screen patient for [facility] eligibility. No hx of DME, dialysis, HH, SNF/Rehab, infusion clinic or BHS. PCP is KRISTIAN Cameron. Tele psych completed upon admission and the current recommendation is IN psych. Discussed with patient who is agreeable to go at this time. CM/DC media planner working on placement at this time. CM to continue to follow.
--- NOTE | 2021-02-04 13:43 | NUR ---
REFERRAL PACKET FAXED TO [facility], SPOKE WITH RANDALL SAID AVAILABILITY TODAY, PT. CHART IS IN ASSESSMENT. CM TO FOLLOW FOR SAFE D/C PLANNING NEEDS.
[2021-02-04 14:53] VITALS: BP 143/84
--- NOTE | 2021-02-04 15:27 | NUR ---
REFERRAL PACKET FAXED [facility]- DECLINED PT. DUE TO CAPABILITIES, [facility]- DECLINED DUE TO CAPABILITIES, [facility]- STILL IN REVIEW, [facility]- WAITING ON DRJessee TO REVIEW, [facility]- STILL IN REVIEW, [facility]- STILL IN REVIEW. CM TO CONTINUE TO FOLLOW FOR SAFE D/C PLANNING.
[2021-02-04 19:10] VITALS: BP 123/69
[2021-02-04 19:15] VITALS: BP 123/69
[2021-02-05] VITALS (7 sets, daily range): BP systolic 132–145; BP diastolic 74–80
--- NOTE | 2021-02-05 07:41 | NUR ---
UPDATE [facility] MEDICALLY ACCEPTED PT. WAITING ON C DIFF RESULTS, 96HR PAPERWORK TO BE FAXED. CM TO CONTINUE TO FOLLOW FOR SAFE D/C PLANNING.
--- NOTE | 2021-02-05 16:14 | NUR ---
96 hour hold approved. Request for 96 hold from accepting facility. Hold effective as of 02/05. Copy faxed down to COMMUNITY ENGAGEMENT MANAGER to be placed on chart. Patient is pending dc at this time to [facility]. Awaiting c-diff results and transportation arrangement. If C-diff results are neg, then patient cannot transfer. Per HS and COMMUNITY ENGAGEMENT MANAGER, results will not be resulted until 1900. Per [facility], they can accept patient any time of day, however transportation being so late in the day will be barrier to discharge. If patient cannot dc today, per [facility], they have a bed that they can hold until tomorrow but will not be able to hold after tomorrow. CM Dir working on transportation through [employer] at this time. HS, ICU Dir and research/program director updated on above information. CM to continue to follow
--- NOTE | 2021-02-06 04:23 | NUR ---
NO DISTRESS THE WHOLE SHIFT. KEPT SAFE.
[2021-02-06 09:00] VITALS: BP 148/96
[2021-02-06 09:06] VITALS: BP 148/96
--- NOTE | 2021-02-06 09:22 | NUR ---
CM Dir arranged transportation to [facility]. Report nurse line provided to nurse. Faxed neg c-diff results this am. C here to pick patient up now to transport. Nursing working on getting EMTALA form signed. SUPERVISOR WET END approved transport. Press Hand made chart copy. No other CM Needs noted at this time. [facility] F: [phone]
--- NOTE | 2021-02-06 09:30 | NUR ---
REPORT CALLED TO RN AT [facility]. EMS ARRIVED TO TRIAGE ASSISTANT PT. LAUREN PACKED AND SENT WITH EMS. PT STABLE UPON TRANSFER.
== END 2021-02-06 09:15 | DRG 918 ==
LOC: M.ERS 07:18 → M.TBA-ER 09:39 → M.ICU 02-02 05:57
PROVIDERS: Emergency Medicine Emergency Medical Services; ADMIT Internal Medicine; ATTEND Internal Medicine
DX: T46.4X1A Poisoning by angiotensin-converting-enzyme inhibitors, accidental (unintentional), initial encounter (principal); R45.851 Suicidal ideations; I10 Essential (primary) hypertension; J45.909 Unspecified asthma, uncomplicated; E03.9 Hypothyroidism, unspecified; T42.6X1A Poisoning by other antiepileptic and sedative-hypnotic drugs, accidental (unintentional), initial encounter; T40.2X1A Poisoning by other opioids, accidental (unintentional), initial encounter; T39.1X1A Poisoning by 4-Aminophenol derivatives, accidental (unintentional), initial encounter; Z88.8 Allergy status to other drugs, medicaments and biological substances; Y92.89 Other specified places as the place of occurrence of the external cause; Z79.899 Other long term (current) drug therapy; Z20.822 Contact with and (suspected) exposure to COVID-19; Z23 Encounter for immunization